=== PATIENT | female | born 1965 | race Caucasian/White ===

== ENCOUNTER 2024-03-07 09:47 | Outpatient (CLI) | payer MEDICAID ==
[~2024-03-07 09:47] MED LIST: FURO-150 PO; OXYC-145 PO; PANT-47 PO; POTA-207 PO
== END 2024-03-07 23:59 | disposition home or self-care (01) ==
LOC: RAD 09:47
PROVIDERS: ATTEND Family Medicine
DX: M47.812 Spondylosis without myelopathy or radiculopathy, cervical region (principal); M48.02 Spinal stenosis, cervical region; R22.1 Localized swelling, mass and lump, neck
CPT/HCPCS: 72050; 76536

== ENCOUNTER 2024-11-20 19:08 | Emergency (ER) | payer MEDICAID ==
[~2024-11-20] VITALS: Ht 167.6 cm; Wt 94.6 kg
[2024-11-20 19:17] VITALS: BP 132/68; PULSE 92; O2SAT 98
[2024-11-20] MEDS ORDERED: ketorolac trometh 15mg/ml vial 15 MG/ML ML IM ONE (19:40)
[2024-11-20 19:45] VITALS: RESP 18
[2024-11-20] MEDS: ketorolac trometh 30MG/ML vial 30 MG/ML VIAL IM ONE (19:45)
[2024-11-20] MEDS ORDERED: KEN0.1O TP (19:49)
[2024-11-20] MEDS ORDERED: CEPH-585 PO (19:49)
[2024-11-20] MEDS ORDERED: HYDR-3686 PO (19:49)
[2024-11-20 19:51] VITALS: TEMP 98.6
== END 2024-11-20 19:55 | disposition home or self-care (01) ==
LOC: ER 19:09
DX: R21 Rash and other nonspecific skin eruption (principal); E78.00 Pure hypercholesterolemia, unspecified; F41.9 Anxiety disorder, unspecified; Z98.890 Other specified postprocedural states
CPT/HCPCS: 96372; 99283; J1885

== ENCOUNTER 2025-03-29 16:19 | Emergency (ER) | payer MEDICAID ==
[~2025-03-29] VITALS: Ht 167.6 cm; Wt 113.5 kg
[2025-03-29 16:47] VITALS: BP 141/61; PULSE 83; RESP 18; O2SAT 97
--- NOTE | 2025-03-29 17:57 | Physician Documentation ---
History of Present Illness ~ Chief Complaint: Bite-insect Stated Complaint: "I GOT STUNG BY A BEE" Time Seen by MD: 18:07 Primary Medical Doctor: CHAPO BUENROSTRO RED BLUFF HPI Patient got stung by a bee to the left thigh yesterday and is now complaining of pain, erythema, redness and swelling. She denies shortness or breath or difficulty breathing. Day of Onset: Mar 29, 2025 Tetanus within 5 years?: Yes Medication Reconciliation Allergies: Coded Allergies: No Known Allergies (Unverified , 11/20/24) Scheduled Furosemide (Lasix), 1 TABLET PO DAILY Oxycodone HCl/Acetaminophen (Percocet 5-325 mg Tablet), 1 TABLET PO TID Pantoprazole Sodium (PROTONIX tablet), 1 TABLET PO DAILY Potassium Chloride* (K-Dur*), 1 TABLET PO Q2D Past Medical History Past Medical History: High Cholesterol, Hernia, Chronic Pain, Anxiety Past Surgical History: , orthopedic surgeries, other Other Past Surgical History: Hernia repair Alcohol Use: None Drug Use: none Lives with: Family Lives In: Home Occupation: employed Review of Systems All Other Systems at this time: Reviewed and Negative ROS As stated above in the HPI, otherwise all systems are reviewed and negative. Physical Exam Vital Signs: Temperature: 97.9, Source: Temporal, Heart Rate: 83, Respiratory Rate: 18, BP: 141/61, Pulse Oximetry: 97, Weight: 113.550 Oxygen Flow Rate: 0 Physical Exam General: Alert, no apparent distress. Respiratory: Lungs clear, no respiratory distress. Chest: No accessory muscle use. Neurologic: Oriented x4. Psychiatric: Normal mood and affect. Skin: erythema to the left inner aspect of her upper thigh with swelling. Warmth with palpation. Progress Results/Orders Results/Orders Completed Orders - RA MAX NP Triamcinolone Acet 40mg/Ml Inj (Kenalog- (03/29/25 18:15) Medications Received in ER Medications (Trade) Dose Ordered Sig/Stella Route PRN Reason Start Time Stop Time Status Last Admin Dose Admin (Kenalog-40 inj) 60 mg ONCE ONCE IM 03/29/25 18:15 03/29/25 18:16 DC 03/29/25 18:22 60 MG Vital Signs 03/29/25 03/29/25 16:47 18:36 Temp 97.9 97.9 Pulse 83 Resp 18 B/P (MAP) 141/61 Pulse Ox 97 O2 Flow Rate 0 Medical Decision Making Findings Patient treated for an allergic reaction secondary to bee sting. She did not present acutely ill or any respiratory distress throughout her standing AV. Cortical steroids and Benadryl going to be her best method of treating Differential Dx:Considerations: Include: Abrasion, Allergic reaction, Anaphylaxis, Cellulitis, Contusion, Fracture, Hematoma, Insect envenomation, Laceration, Neurovascular injury, Punture wound, Retained foreign body, Urticaria, Other Departure Disposition: 01 HOME / SELF CARE / HOMELESS Impression: Primary Impression: Insect bites Additional Impression: Anaphylactic reaction to bee sting Discharge Instructions: Insect Bite, Adult, [id number] Referrals: NO PRIMARY CARE PROVIDER (PCP) Signature Scribe Signature: t Attestation: Scribed for Ra Max Dump Worker by Ra Carr NP . 03/29/25 21:45 YANI OLGUIN NP Mar 29, 2025 17:57 RA MAX NP Mar 29, 2025 18:27
[2025-03-29] MEDS: triamcinolone acetonide 40mg/ml inj IM ONE (18:22)
[2025-03-29 18:36] VITALS: TEMP 97.9
== END 2025-03-29 18:40 | disposition home or self-care (01) ==
LOC: ER 16:19
DX: S70.362A Insect bite (nonvenomous), left thigh, initial encounter (principal); T63.441A Toxic effect of venom of bees, accidental (unintentional), initial encounter; E78.00 Pure hypercholesterolemia, unspecified; F41.9 Anxiety disorder, unspecified; Z98.890 Other specified postprocedural states; X58.XXXA Exposure to other specified factors, initial encounter; Y93.89 Activity, other specified; Y92.89 Other specified places as the place of occurrence of the external cause; Y99.8 Other external cause status
CPT/HCPCS: 96372; 99283; J3301